=== PATIENT | female | born 1955 | race Caucasian/White ===

== ENCOUNTER 2019-04-24 12:44 | Emergency (ER) | payer MEDICARE, BC ==
[2019-04-24 13:15] LABS: ABSOLUTE LYMPHOCYTES (AUTO) 0.7 10^3/uL (0.5-4.7); ABSOLUTE MONOCYTES (AUTO) 0.2 10^3/uL (0.1-1.4); ABSOLUTE NEUT (AUTO) 8.6 10^3/uL (1.7-8.2); BASOPHILS % (AUTO) 0.2 % (0-2); EOSINOPHILS % (AUTO) 0.1 % (0-6); HEMATOCRIT 39.3 % (36.0-47.0); HEMOGLOBIN 13.4 g/dL (12.0-15.5); LYMPHOCYTES % (AUTO) 7.4 % (13-45); MEAN CORPUSCULAR HEMOGLOBIN 31.5 pg (27.0-33.4); MEAN CORPUSCULAR HGB CONC 34.2 g/dL (32.0-36.0); MEAN CORPUSCULAR VOLUME 92 fl (80-97); PLATELET COUNT 262 10^3/uL (150-450); RED BLOOD COUNT 4.26 10^6/uL (3.72-5.28); RED CELL DISTRIBUTION WIDTH 12.9 % (11.5-14.0); SEGMENTED NEUTROPHILS % (AUTO) 90.3 % (42-78); TOTAL CELLS COUNTED % (AUTO) 100 %; WHITE BLOOD COUNT 9.5 10^3/uL (4.0-10.5)
[2019-04-24 13:36] LABS: ALBUMIN 4.8 g/dL (3.5-5.0); ALKALINE PHOSPHATASE 56 U/L (38-126); ANION GAP 15 (5-19); ASPARTATE AMINO TRANSFERASE 31 U/L (14-36); BILIRUBIN,DIRECT 0.1 mg/dL (0.0-0.4); BILIRUBIN,TOTAL 0.7 mg/dL (0.2-1.3); BLOOD UREA NITROGEN 17 mg/dL (7-20); CARBON DIOXIDE 22 mmol/L (22-30); CHLORIDE 104 mmol/L (98-107); CREATINE KINASE 75 U/L (30-135); GLUCOSE 157 mg/dL (75-110); POTASSIUM 3.8 mmol/L (3.6-5.0); TOTAL PROTEIN 7.7 g/dL (6.3-8.2)
[2019-04-24] MEDS ORDERED: NORMAL SALINE 1000 ML 1,000 ML IV ONE (13:40)
[2019-04-24 13:52] LABS: CREATINE KINASE MB 0.59 ng/mL (<4.55)
[2019-04-24 13:53] LABS: TROPONIN I < 0.012 ng/mL
[2019-04-24 14:25] LABS: AMORPHOUS SEDIMENT,URINE TRACE /HPF; APPEARANCE,URINE SLIGHTLY-CLOUDY; BILIRUBIN,URINE NEGATIVE (NEGATIVE); COLOR,URINE YELLOW; GLUCOSE, URINE NEGATIVE (NEGATIVE); KETONES,URINE NEGATIVE (NEGATIVE); LEUKOCYTE ESTERASE,URINE NEGATIVE (NEGATIVE); NITRITE,URINE NEGATIVE (NEGATIVE); PROTEIN,URINE NEGATIVE (NEGATIVE); URINE SPECIFIC GRAVITY 1.015; UROBILINOGEN,URINE NEGATIVE mg/dL (<2.0)
--- NOTE | 2019-04-24 14:26 | RADIOLOGY REPORT (SQ) ---
EXAM DESCRIPTION: CT HEAD WITHOUT COMPLETED DATE/TIME: 04/24/2019 2:11 pm REASON FOR STUDY: Dizziness COMPARISON: None. TECHNIQUE: Axial images acquired through the brain without intravenous contrast. Images reviewed wi th bone, brain and subdural windows. Additional sagittal and coronal reconstructions were generated. Images stored on PACS. All CT scanners at this facility use dose modulation, iterative reconstruction, and/or weight based d osing when appropriate to reduce radiation dose to as low as reasonably achievable (ALARA). [facility]: Dose Right [facility]: CareDose [facility]: Dose Right [facility]: Teradose 4D [facility]: [employer] RADIATION DOSE: CT Rad equipment meets quality standard of care and radiation dose reduction techniq ues were employed. CTDIvol: 53.2 mGy. DLP: 1097 mGy-cm. mGy. LIMITATIONS: None. FINDINGS: VENTRICLES: Normal size and contour. CEREBRUM: No masses. No hemorrhage. No midline shift. No evidence for acute infarction. Normal gra y/white matter differentiation. No areas of low density in the white matter. CEREBELLUM: No masses. No hemorrhage. No alteration of density. No evidence for acute infarction. EXTRAAXIAL SPACES: No fluid collections. No masses. ORBITS AND GLOBE: No intra- or extraconal masses. Normal contour of globe without masses. CALVARIUM: No fracture. PARANASAL SINUSES: No fluid or mucosal thickening. SOFT TISSUES: No mass or hematoma. Bilateral palatine tonsilliths. OTHER: No other significant finding. IMPRESSION: No evidence of acute intracranial process. EVIDENCE OF ACUTE STROKE: NO. COMMENT: Quality ID # [id number]: Final reports with documentation of one or more dose reduction techniques (e.g., Automated exposure control, adjustment of the mA and/or kV according to patient size, use of iterative reconstruction technique) TECHNICAL DOCUMENTATION: JOB ID: [id number] [employer] ([employer])- All Rights Reserved Reading location - IP/workstation name: [email or web address]
--- NOTE | 2019-04-24 14:53 | ER Document Report ---
ED General - General Chief Complaint: Nausea/Vomiting Stated Complaint: NAUSEA,VOMITING Time Seen by Provider: 04/24/19 13:24 Notes: 63-year-old female presents to the ER with dizziness nausea vomiting and one loose stool. Patient states this all began at 9 AM when she began to feel very dizzy and the room was spinning around her she became flushed and very nauseous and began vomiting. She had one loose stool. She denies any recent illnesses no fever no chills. He developed a mild headache after the incident. She denies any extremity numbness tingling or weakness denies chest pain denies shortness of breath. The dizziness is worse with turning of the head. Patient feels better if she holds her head and stays in one position. TRAVEL OUTSIDE OF THE [place] IN LAST 30 DAYS: No - Related Data Allergies/Adverse Reactions: iodine Allergy (Verified 04/24/19 13:03) shrimp Allergy (Verified 04/24/19 13:03) Past Medical History - Social History Smoking Status: Former Smoker Chew tobacco use (# tins/day): No Frequency of alcohol use: None Drug Abuse: None Family History: None Patient has suicidal ideation: No Patient has homicidal ideation: No - Past Medical History Cardiac Medical History: Reports: Hx Hypercholesterolemia, Hx Hypertension Past Surgical History: Reports: Hx Orthopedic Surgery - right hip replacement Review of Systems - Review of Systems Constitutional: denies: Chills, Fever Cardiovascular: denies: Chest pain Respiratory: denies: Cough, Short of breath Gastrointestinal: Diarrhea, Nausea, Vomiting. denies: Constipation Genitourinary: denies: Dysuria Neurological/Psychological: Other - Dizziness -: Yes All other systems reviewed and negative Physical Exam - Vital signs Vitals: Temp Pulse Resp BP Pulse Ox 97.6 F 83 22 H 166/93 H 100 04/24/19 12:50 04/24/19 12:50 04/24/19 12:50 04/24/19 12:50 04/24/19 12:50 - Notes Notes: GENERAL_APPEARANCE: well_nourished, alert, cooperative VITALS: reviewed, see vital signs table. HEAD: no_swelling\tenderness on the head. EYES: PERRL, EOMI, conjunctiva_clear. There is nystagmus with head turning NOSE: no_nasal_discharge. MOUTH: (-)decreased moisture. THROAT: no_tonsilar_inflammation, no_airway_obstruction. no_lymphadenopathy NECK: supple, no_neck_tenderness, (-)thyromegaly. BACK: no_back_tenderness. CHEST_WALL: no_chest_tenderness. LUNGS: no_wheezing, no_rales, no_rhonchi, (-)accessory muscle use, good air exchange bilateral. HEART: normal_rate, normal_rhythm, normal_S1, normal_S2, (-)S3, (-)S4, no_murmur, no_rub. ABDOMEN: normal_BS, soft, no_abd_tenderness, (-)guarding, (-)rebound, no_organomegaly, no_abd_masses. EXTREMITIES: strength 5/5 in all_extremities, good pulses in all_extremities, no_swelling\tenderness in the extremities, no_edema. SKIN: warm, dry, good_color, no_rash. MENTAL_STATUS: speech_clear, oriented_X_3, normal_affect, responds_appropriately to questions. NEURO: Neg Motor or Sensory Deficits on exam, CN 2-12 intact, DTR 2+ symmetric x 4, No cerbellar signs Course - Re-evaluation Re-evalutation: 04/24/19 14:51 63-year-old female presents with vertigo. The patient say the room was spinning around her she has had several episodes of nausea vomiting and one loose stool she had a little bit of chills but denies any fever denies chest pain or shortness of breath denies blurred vision denies extremity numbness tingling or weakness. She is feeling much better now. She has never had vertigo before. She has not had any URI symptoms. We are doing a full work-up here. CT scan was normal. Nothing to suggest stroke 04/24/19 15:42 Patient received meclizine is feeling better she states she still feels a little bit off balance but not as bad. Evaluating her she has no extremity numbness tingling or weakness. Cranial nerves are with intact no deficits. She is able to walk without cerebellar ataxia. I spoke with the patient about the limitations of her testing. At this time believe this to be vertigo and not a stroke. However explained to the patient that not everything shows up right away if she continues to have symptoms she is to return to the ER immediately. Her and her verbalized understanding. 04/24/19 15:44 It is of note the patient does admit to a long history of tinnitus and hearing loss. I explained to them that this may be the beginning of Mnire's disease. This would complete the triad with the vertigo. We will give them some written instructions also - Vital Signs Vital signs: Temp Pulse Resp BP Pulse Ox 97.6 F 83 22 H 160/93 H 98 04/24/19 12:50 04/24/19 12:50 04/24/19 13:08 04/24/19 13:07 04/24/19 13:08 - Laboratory Result Diagrams: 04/24/19 13:06 04/24/19 13:06 Laboratory results interpreted by me: 04/24/19 04/24/19 13:06 13:06 Lymph % (Auto) 7.4 L Gilmer % (Auto) 2.0 L Absolute Neuts (auto) 8.6 H Seg Neutrophils % 90.3 H Creatinine 0.50 L Glucose 157 H - Diagnostic Test Radiology reviewed: Reports reviewed Radiology results interpreted by me: 04/24/19 14:[address] 04/24/19 13:40 IMPRESSION: No evidence of acute intracranial process. EVIDENCE OF ACUTE STROKE: NO. - EKG Interpretation by Me EKG shows normal: Sinus rhythm Rhythm: NSR Discharge - Discharge Clinical Impression: Vertigo, Meniere syndrome Condition: Good Disposition: HOME, SELF-CARE Instructions: Meniere's Disease ([facility]), Vertigo ([facility]) Prescriptions: Meclizine HCl [Antivert 25 mg Tablet] 25 mg PO TID PRN #30 tablet PRN Reason: Ondansetron [Zofran Odt 4 mg Tablet] 1 - 2 tab PO Q4H PRN #15 tab.rapdis PRN Reason: For Nausea/Vomiting
[2019-04-24] MEDS ORDERED: MECLIZINE HCL 25 MG TABLET PO ONE (14:56)
[2019-04-24 15:45] VITALS: BP 132/78
--- NOTE | 2019-04-24 18:27 | EKG REPORT ---
SEVERITY:- BORDERLINE ECG - SINUS RHYTHM PROBABLE LEFT ATRIAL ABNORMALITY : Confirmed by: Jensen Finley 24-Apr-2019 18:27:02
== END 2019-04-24 16:00 | disposition home or self-care (01) ==
LOC: ER 12:44
DX: H81.09 Meniere's disease, unspecified ear (principal); R11.2 Nausea with vomiting, unspecified; R19.7 Diarrhea, unspecified; R51 Headache; E78.00 Pure hypercholesterolemia, unspecified; I10 Essential (primary) hypertension; Z96.641 Presence of right artificial hip joint
CPT/HCPCS: 93005; 99284; 96360; 36415; 82553; 82550; 85025; 80053; 81001; 84484; 70450; 93010; A9270; J7030